=== PATIENT | female | born 1950 | race Caucasian/White ===

== ENCOUNTER 2016-12-07 14:52 | Outpatient (CLI) | payer MEDICARE | END 2016-12-07 14:53 | disposition home or self-care (01) | DX: Z12.31 Encounter for screening mammogram for malignant neoplasm of breast (principal) ==

== ENCOUNTER 2017-07-16 11:51 | Emergency (ER) | payer MEDICARE ==
[2017-07-16 12:23] LABS: BASOPHILS # (AUTO) 0.1 10^3/uL (0.0-0.1); BASOPHILS % (AUTO) 1.3 %; EOSINOPHILS # (AUTO) 0.1 10^3/uL (0.0-0.7); EOSINOPHILS % (AUTO) 1.6 %; HCT - HEMATOCRIT 37.9 % (37.0-47.0); LYMPHOCYTES # (AUTO) 1.1 10^3/uL (1.5-3.5); LYMPHOCYTES % (AUTO) 20.9 %; MEAN CORPUSCULAR HEMOGLOBIN 29.9 pg (27.0-31.0); MEAN CORPUSCULAR HGB CONC 34.3 g/dL (32.0-36.0); MEAN CORPUSCULAR VOLUME 87.2 fL (81.0-99.0); MEAN PLATELET VOLUME 7.3 fL (7.9-10.8); MONOCYTES # (AUTO) 0.4 10^3/uL (0.0-1.0); MONOCYTES % (AUTO) 7.9 %; NEUTROPHILS # (AUTO) 3.7 10^3/uL (1.5-6.6); NEUTROPHILS % (AUTO) 68.3 %; RED BLOOD COUNT 4.34 10^6/uL (4.20-5.40); RED CELL DISTRIBUTION WIDTH 13.5 % (12.0-15.0); UNCORRECTED WHITE BLOOD COUNT 5.4 x10^3/uL; WHITE BLOOD COUNT 5.4 x10^3/uL (4.8-10.8)
--- NOTE | 2017-07-16 12:25 | ED Physician Documentation ---
PD HPI CHEST PAIN - Stated complaint Stated Complaint: RAPID HB - Chief complaint Chief Complaint: Cardiac - History obtained from History obtained from: Patient - History of Present Illness Timing - onset: Last night (about 2 am, awoke from sleep with feeling of fast heart rate, which continued into this morning. She has olga on phone that measures heart rate and it read consistently 150 at intervals through the night. Reading here now was 84 and correlated with our heart monitor, so seems reliable.) Timing - onset during: Sleep Timing - duration: Hours (about 9 hours duration, improved here.) Timing - details: Abrupt onset, Now resolved (resolved just as arriving to the ED. Had gone to bathroom shortly prior to that.) Quality: Pressure Location: Substernal Radiation: No: Jaw, Neck, Back, Abdominal, Left upper extremity, Right upper extremity, Other Worsened by: Exertion Associated symptoms: Shortness of air, Palpitations. No: Diaphoresis, Nausea, Feeling faint / dizzy, Cough Similar symptoms before: No diagnosis (has had feeling of heart racing briefly in the past but only few minutes at a time. No Dx.) Recently seen: Not recently seen Review of Systems Constitutional: denies: Fever, Chills Nose: denies: Rhinorrhea / runny nose, Congestion Throat: denies: Sore throat Cardiac: reports: Palpitations. denies: Pedal edema, Calf pain Respiratory: reports: Dyspnea. denies: Cough, Wheezing GI: denies: Nausea, Vomiting, Diarrhea : denies: Dysuria, Frequency Skin: denies: Rash, Lesions Musculoskeletal: denies: Extremity swelling Neurologic: denies: Focal weakness, Numbness, Near syncope PD PAST MEDICAL HISTORY - Past Medical History Cardiovascular: None Respiratory: None Neuro: None Endocrine/Autoimmune: None - Present Medications Home Medications: Ambulatory Orders Medication Instructions Recorded Confirmed Levothyroxine [Synthroid] 100 mcg PO DAILY 07/16/17 07/16/17 Meloxicam 7.5 mg PO DAILY 07/16/17 07/16/17 Metoprolol Tartrate 25 mg PO DAILY #15 tablet 07/16/17 - Allergies Allergies/Adverse Reactions: Allergies Allergy/AdvReac Type Severity Reaction Status Date / Time No Known Drug Allergies Allergy Verified 07/16/17 12:03 - Family History Family history: reports: Other (atrial fib in several family members. ). denies : Sudden PD ED PE NORMAL - Vitals Vital signs reviewed: Yes - General General: Alert and oriented X 3, No acute distress, Well developed/nourished - HEENT HEENT: Atraumatic, Moist mucous membranes, Pharynx benign - Neck Neck: Supple, no meningeal sign, No adenopathy - Cardiac Cardiac: RRR, No murmur - Respiratory Respiratory: Clear bilaterally - Abdomen Abdomen: Soft, Non tender, Non distended - Female Female : Deferred - Rectal Rectal: Deferred - Back Back: No CVA TTP - Derm Derm: Normal color, Warm and dry - Extremities Extremities: No deformity, No tenderness to palpate, No edema, No calf tenderness / cord - Neuro Neuro: Alert and oriented X 3, No motor deficit, Normal speech - Psych Psych: Normal mood, Normal affect Results - Vitals Vitals: Vital Signs - 24 hr 07/16/17 07/16/17 07/16/17 11:55 13:58 14:02 Temperature 36.7 C Heart Rate 99 89 77 Respiratory 16 19 12 Rate Blood Pressure 148/78 H 123/110 H 110/68 O2 Saturation 98 100 99 07/16/17 15:21 Temperature 36.4 C L Heart Rate 80 Respiratory 18 Rate Blood Pressure 128/74 O2 Saturation 100 Oxygen O2 Source Room air - EKG (time done) 11:58 Rate: Rate (enter#) (96) Rhythm: NSR [place]: Normal Intervals: Normal PA QRS: Normal Ischemia: Normal ST segments. No: ST elevation c/w ischemia, ST depression Compare to prior EKG: Old EKG unavailable - Labs Labs: Laboratory Tests 07/16/17 07/16/17 07/16/17 12:13 12:13 12:13 WBC 5.4 RBC 4.34 Hgb 13.0 Hct 37.9 MCV 87.2 MCH 29.9 MCHC 34.3 RDW 13.5 Plt Count 258 MPV 7.3 L Neut # 3.7 Lymph # 1.1 L [place] # 0.4 Eos # 0.1 Baso # 0.1 Absolute Nucleated RBC 0.00 Nucleated RBC % 0.0 Sodium 138 Potassium 3.7 Chloride 102 Carbon Dioxide 26 Anion Gap 10.0 BUN 17 Creatinine 0.9 Estimated GFR (MDRD) 62 L Glucose 115 H Calcium 9.4 Magnesium Troponin I 0.13 B-Natriuretic Peptide 07/16/17 07/16/17 07/16/17 12:13 12:13 14:44 WBC RBC Hgb Hct MCV MCH MCHC RDW Plt Count MPV Neut # Lymph # [place] # Eos # Baso # Absolute Nucleated RBC Nucleated RBC % Sodium Potassium Chloride Carbon Dioxide Anion Gap BUN Creatinine Estimated GFR (MDRD) Glucose Calcium Magnesium 1.9 Troponin I 0.15 B-Natriuretic Peptide 178 H - Rads (name of study) chest Radiology: Prelim report reviewed, EMP read contemporaneously (no acute process) ECHO Radiology: Prelim report reviewed (normal LV function and good EF 65-70%. Mild MR, otherwise normal valves. ) PD MEDICAL DECISION MAKING - ED course Complexity details: reviewed results (Initial Troponin from triage orders had minimal bump. Likely due to muscle strain fo the SVT. Watched for couple hours and also got ECHO, which was okay. Repeat Troponin without change, so not indicative of acute focal myocardial injury. ), re-evaluated patient (stil NSR in ED and feeling okay.), considered differential, d/w patient Departure - Departure Disposition: 01 Home, Self Care Clinical Impression: Paroxysmal SVT (supraventricular tachycardia) Condition: Stable Record reviewed to determine appropriate education?: Yes Instructions: ED Tachycardia Pat PSVT Follow-Up: Linette Mahmood PA [Primary Care Provider] - Prescriptions: Metoprolol Tartrate 25 mg PO DAILY #15 tablet Comments: Your heart function looks good on echocardiogram (ultrasound of the heart). There is very slight valve dysfunction which is very common. Your heart rhythm is been normal here. There is no signs of heart attack or heart failure. It sounds most likely to have been an SVT episode. However it could have been atrial fibrillation and been fairly regular. Follow-up with your primary care for likely a Holter monitor where he can have your rhythm recorded for a week to see if other episodes happen. Drink lots of fluids and regular activity. If you do notice some episodes more frequently before seeing your primary care, you could start metoprolol low dose daily to try to reduce the frequency. If you have persistent episode again, return to the ER. If you do have another episode that persists more than several minutes, you could try vagal maneuvers like grunting really hard as of having a bowel movement for 30 seconds and then relaxing. [place] in the face will sometimes do it as well. Discharge Date/Time: 07/16/17 15:21
[2017-07-16 12:34] LABS: CALCIUM 9.4 mg/dL (8.5-10.3); CREATININE 0.9 mg/dL (0.4-1.0); POTASSIUM 3.7 mmol/L (3.5-5.0)
[2017-07-16] MEDS ORDERED: ASPIRIN CHEW 81 MG TABLET PO STA (12:51)
[2017-07-16] MEDS ORDERED: ASPIRIN CHEW 81 MG TABLET ONE (13:10)
--- NOTE | 2017-07-16 13:29 | XRAY Preliminary Report ---
Exam: XR CHEST 1 VIEW IMPRESSION: Normal single view chest. [facility] SITE ID: [id number]
--- NOTE | 2017-07-16 14:01 | XRAY Report ---
EXAM: CHEST RADIOGRAPHY EXAM DATE: 07/16/2017 01:12 PM. CLINICAL HISTORY: Rapid heart rate for a few hours. COMPARISON: 09/20/2015. TECHNIQUE: 1 view. FINDINGS: Lungs/Pleura: No focal opacities evident. No pleural effusion. No pneumothorax. Mediastinum: Within exam limitations, the cardiomediastinal contour is normal. Other: None. IMPRESSION: Normal single view chest. [facility] Referring Provider Line: [phone] SITE ID: [id number]
[2017-07-16 15:23] VITALS: BP 128/74
== END 2017-07-16 15:21 | disposition home or self-care (01) ==
LOC: ED 11:51
DX: I47.1 Supraventricular tachycardia (principal)
CPT/HCPCS: 36415; 71010; 80048; 83735; 83880; 84484; 85025; 93005; 93306; 99284; A9270

== ENCOUNTER 2018-05-17 15:43 | Outpatient (CLI) | payer MEDICARE ==
--- NOTE | 2018-05-18 13:38 | Mammography Report ---
Reason: BILAT SCREEN w HIMANSHU Procedure Date: 05/17/2018 Accession Number: [id number] / [id number] Procedure: JIGNA - Screening Mammo w/Himanshu CPT Code: FULL RESULT: EXAM: Screening Mammo w/Himanshu DATE: 05/17/2018 4:18 PM CLINICAL HISTORY: 67 year-old nulliparous female presents for screening mammogram. TECHNIQUE: Bilateral CC and MLO views were obtained. COMPARISON: 12/07/2016, 09/20/2015, 07/21/2012, 07/23/2010. FINDINGS: The breasts demonstrate diffuse fatty replacement bilaterally. An apparent left breast upper quadrant asymmetry seen on the left MLO view resolves with 3-D tomography, tissue overlap and therefore benign. No suspicious masses, clustered microcalcifications, or regions of architectural distortion are identified. IMPRESSION: Benign findings RECOMMENDATION: Routine annual screening unless otherwise clinically indicated. BIRADS CATEGORY 2: Benign findings STANDARD QUALIFYING STATEMENTS: 1. This examination was not reviewed with the aid of Computer-Aided Detection (CAD). 2. A negative or benign imaging report should not delay biopsy if clinically suspicious findings are present. Consider surgical consultation if warrented. More than 5% of cancers are not identified by imaging. 3. Dense breasts may obscure an underlying neoplasm. 4. This examination was reviewed with the aid of 3D breast imaging (tomosynthesis).
== END 2018-05-17 15:44 | disposition home or self-care (01) ==
LOC: DI 15:43
PROVIDERS: ATTEND Internal Medicine
DX: Z12.31 Encounter for screening mammogram for malignant neoplasm of breast (principal)
CPT/HCPCS: 77063; 77067

== ENCOUNTER 2019-06-17 16:18 | Outpatient (CLI) | payer MEDICARE ==
--- NOTE | 2019-06-23 10:12 | Ultrasound Report ---
Reason: RT CALF PAIN Procedure Date: 06/17/2019 Accession Number: [id number] / [id number] Procedure: US - Duplex Ext Veins Right CPT Code: Final Report FULL RESULT: EXAM: RIGHT LOWER EXTREMITY VENOUS ULTRASOUND EXAM DATE: 06/17/2019 05:26 PM. CLINICAL HISTORY: RT CALF PAIN. COMPARISON: None. TECHNIQUE: Real-time sonographic vascular imaging was performed by the muffle operator through the lower extremity utilizing both color-flow and Doppler spectral analysis. Multiple sales representative public utilities static images were saved for review. FINDINGS: Common Femoral Vein (CFV): Normal. CFV-GSV Junction: Normal. Profunda Femoral Vein (PFV): Normal. Femoral Vein (FV) Prox: Normal. Femoral Vein (FV) Mid: Normal. Femoral Vein (FV) Dist: Normal. Popliteal Vein: Normal. Posterior Tibial Veins: Normal. Peroneal Veins: Normal. Other: Visualization of calf veins is limited. Additionally, incidental note is made of a 6.8 x 1.4 cm anechoic appearing linear fluid collection within soft tissues anterior to the knee. IMPRESSION: No evidence for deep venous thrombosis. Soft tissue fluid as described. [facility]
== END 2019-06-17 16:19 | disposition home or self-care (01) ==
LOC: DI 16:18
PROVIDERS: ATTEND Nurse Practitioner Family
DX: M79.661 Pain in right lower leg (principal)

== ENCOUNTER 2019-08-21 11:17 | Outpatient (CLI) | payer MEDICARE ==
--- NOTE | 2019-08-21 15:05 | XRAY Report ---
Reason: ACUTE BRONCHITIS, UNSPECIFIED Procedure Date: 08/21/2019 Accession Number: [id number] / [id number] Procedure: XRS - Chest 2 View X-Ray CPT Code: 67420 Final Report FULL RESULT: EXAM: CHEST RADIOGRAPHY EXAM DATE: 08/21/2019 11:29 AM. CLINICAL HISTORY: ACUTE BRONCHITIS, UNSPECIFIED. Cough. COMPARISON: CHEST 2 VIEW PA/LAT 09/20/2015 2:53 PM. TECHNIQUE: 2 views. FINDINGS: Lungs/Pleura: Linear atelectasis or scarring in the left base. Mild interstitial prominence with some peribronchial cuffing. No definite acute infiltrate, consolidation, effusion, or pneumothorax. Mediastinum: Heart and mediastinal contours are unremarkable. Other: Degenerative changes. IMPRESSION: Interstitial prominence compatible with clinical impression of bronchitis. [facility]
== END 2019-08-21 11:18 | disposition home or self-care (01) ==
LOC: DI.S 11:17
PROVIDERS: ATTEND Physician Assistant
DX: J20.9 Acute bronchitis, unspecified (principal)
CPT/HCPCS: 71046

== ENCOUNTER 2021-03-19 11:33 | Outpatient (CLI) | payer MEDICARE ==
[2021-03-19 15:25] LABS: ALBUMIN 3.8 g/dL (3.2-5.5); ALBUMIN/GLOBULIN RATIO 1.1 (1.0-2.2); ALKALINE PHOSPHATASE 78 IU/L (42-121); ALT ALANINE AMINOTRANSFERASE 12 IU/L (10-60); AMYLASE 53 U/L (28-100); AST ASPARTATE AMINOTRANSFERASE 13 IU/L (10-42); BILIRUBIN,TOTAL 0.4 mg/dL (0.2-1.0); BUN - BLOOD UREA NITROGEN 15 mg/dL (6-20); CALCIUM 9.1 mg/dL (8.5-10.3); CARBON DIOXIDE - CO2 26 mmol/L (21-32); CHLORIDE 99 mmol/L (101-111); CHOL/HDL RATIO 4.3 (<4.4); CHOLESTEROL 137 mg/dL; CREATININE 0.9 mg/dL (0.4-1.0); GFR - MDRD 62 (>89); GLUCOSE 112 mg/dL (70-100); HDL CHOLESTEROL 32 mg/dL; LDL CHOLESTEROL,CALCULATED 86 mg/dL; LDL/HDL RATIO 2.7 (<4.4); LIPASE 32 U/L (22-51); POTASSIUM 4.1 mmol/L (3.5-5.0); SODIUM 136 mmol/L (135-145); TOTAL PROTEIN 7.3 g/dL (6.7-8.2); TRIGLYCERIDES 97 mg/dL; VLDL CHOLESTEROL 19 mg/dL
[2021-03-19 15:33] LABS: THYROID STIMULATING HORMONE 2.85 uIU/mL (0.34-5.60)
[2021-03-19 19:58] LABS: ESTIMATED AVERAGE GLUCOSE 111 mg/dL (70-100); HEMOGLOBIN A1c% 5.5 % (4.27-6.07)
== END 2021-03-19 11:34 | disposition home or self-care (01) ==
LOC: LAB.S 11:33
PROVIDERS: ATTEND Nurse Practitioner Family
DX: K21.9 Gastro-esophageal reflux disease without esophagitis (principal); E03.9 Hypothyroidism, unspecified; R73.01 Impaired fasting glucose; E78.5 Hyperlipidemia, unspecified
CPT/HCPCS: 36415; 80053; 80061; 82150; 83036; 83690; 83721; 84443

== ENCOUNTER 2021-10-01 15:21 | Outpatient (CLI) | payer MEDICARE ==
--- NOTE | 2021-10-01 17:00 | XRAY Report ---
PROCEDURE: Foot 3 View LT INDICATIONS: CHRONIC L FOOT PAIN TECHNIQUE: 3 views of the foot were acquired. COMPARISON: None FINDINGS: Bones: No fractures or dislocations. Osteoarthritic changes throughout left foot and ankle joints ar e seen. Well-defined plantar calcaneal enthesophyte is noted. No suspicious bony lesions. Soft tissues: No tibiotalar joint effusion. Achilles tendon appears normal. 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 No acute fracture or dislocation. Well-defined calcaneal enthesophyte. Reviewed by: Silvestre Avila MD on 10/01/2021 4:59 PM PST Approved by: Silvestre Avila MD on 10/01/2021 4:59 PM PST Station ID: [id number]
== END 2021-10-01 15:22 | disposition home or self-care (01) ==
LOC: DI 15:21
PROVIDERS: ATTEND Podiatrist
DX: M19.072 Primary osteoarthritis, left ankle and foot (principal)

== ENCOUNTER 2022-09-23 11:01 | Outpatient (CLI) | payer MEDICARE ==
[2022-09-23 16:06] LABS: THYROID STIMULATING HORMONE 3.75 uIU/mL (0.34-5.60)
== END 2022-09-23 11:02 | disposition home or self-care (01) ==
LOC: LAB.S 11:01
PROVIDERS: ATTEND Internal Medicine
DX: E03.9 Hypothyroidism, unspecified (principal)
CPT/HCPCS: 36415; 84443

== ENCOUNTER 2022-10-02 12:31 | Emergency (ER) | payer MEDICARE ==
[2022-10-02 12:38] VITALS: BP 180/110
--- OUTSIDE RECORDS SUMMARY | 2022-10-02 12:52 | EXTERNAL MEDICAL SUMMARY RPT | Continuity of Care Document ---
:1950 Author Organization [facility] Address [address] [place] [address] Phone Care Team Providers Name Role Phone Unavailable Unavailable Unavailable Ruben Chery, Keshia Unavailable Unavailable Maurizio Rn, Bsn, Alix Unavailable Unavailable Allergies No information. Encounters No information. Functional Status No information. Immunizations No information. Medications date description facility 2022-09-02 00:00 famotidine All 2022-09-02 00:00 famotidine All 2022-09-03 00:00 famotidine All 2022-10-01 00:00 famotidine All 2022-09-03 00:00 estradiol All 2022-10-01 00:00 estradiol All 2022-09-03 00:00 levothyroxine All 2022-10-01 00:00 levothyroxine All 2022-09-02 00:00 phentermine All 2022-09-02 00:00 phentermine All 2022-09-03 00:00 levothyroxine All 2022-10-01 00:00 levothyroxine All 2022-09-02 00:00 phentermine All 2022-09-02 00:00 phentermine All 2022-09-03 00:00 estradiol All 2022-10-01 00:00 estradiol All 2022-09-02 00:00 famotidine All 2022-09-02 00:00 famotidine All 2022-09-03 00:00 famotidine All 2022-10-01 00:00 famotidine All 2022-09-03 00:00 levothyroxine All 2022-10-01 00:00 levothyroxine All 2022-09-03 00:00 levothyroxine All 2022-10-01 00:00 levothyroxine All 2022-09-03 00:00 estradiol All 2022-10-01 00:00 estradiol All 2022-09-02 00:00 famotidine All 2022-09-02 00:00 famotidine All 2022-09-03 00:00 famotidine All 2022-10-01 00:00 famotidine All 2022-09-03 00:00 meloxicam All 2022-10-01 00:00 meloxicam All 2022-09-03 00:00 levothyroxine All 2022-10-01 00:00 levothyroxine All 2022-09-03 00:00 atorvastatin All 2022-10-01 00:00 atorvastatin All 2022-09-03 00:00 atorvastatin All 2022-10-01 00:00 atorvastatin All 2022-09-02 00:00 famotidine All 2022-09-02 00:00 famotidine All 2022-09-03 00:00 famotidine All 2022-10-01 00:00 famotidine All 2022-09-03 00:00 meloxicam All 2022-10-01 00:00 meloxicam All 2022-09-03 00:00 estradiol All 2022-10-01 00:00 estradiol All 2022-09-03 00:00 levothyroxine All 2022-10-01 00:00 levothyroxine All 2022-09-02 00:00 phentermine All 2022-09-02 00:00 phentermine All 2022-09-03 00:00 atorvastatin All 2022-10-01 00:00 atorvastatin All 2022-09-03 00:00 atorvastatin All 2022-10-01 00:00 atorvastatin All 2022-09-03 00:00 meloxicam All 2022-10-01 00:00 meloxicam All 2022-09-03 00:00 meloxicam All 2022-10-01 00:00 meloxicam All 2022-09-03 00:00 levothyroxine All 2022-10-01 00:00 levothyroxine All 2022-09-03 00:00 levothyroxine All 2022-10-01 00:00 levothyroxine All 2022-09-02 00:00 phentermine All 2022-09-02 00:00 phentermine All Problems date description facility 2022-09-03 00:00 Unspecified hypothyroidism All 2022-09-03 00:00 Hypothyroidism All 2022-09-03 00:00 Obesity All 2022-09-03 00:00 Hypothyroidism, unspecified All 2022-09-03 00:00 Obesity, unspecified All 2022-10-01 00:00 Unspecified hypothyroidism All 2022-10-01 00:00 Hypothyroidism All 2022-10-01 00:00 Obesity All 2022-10-01 00:00 Hypothyroidism, unspecified All 2022-10-01 00:00 Obesity, unspecified All Procedures No information. Results/Labs test date author facility value unit interpret ation Result panel 1 (unknown) (no date) (unknown) All (no value) (units unknown ) (unknown) Social History date description facility 2022-09-03 00:00 Unknown if ever smoked All 2022-10-01 00:00 Unknown if ever smoked All Vital Signs No information.
--- NOTE | 2022-10-02 12:59 | ED Physician Documentation ---
History of Present Illness - Stated complaint Stated Complaint: SOA, HIGH BP - Chief complaint Chief Complaint: General - History obtained from History obtained from: Patient - Additonal information Additional information: 72-year-old woman with history of hypercholesterolemia. She had told the nurse she was on antihypertensives, but after review of her medications she is only on levothyroxine and a atorvastatin. Her blood pressure was doing fine at her last physical in May but last week she went to [facility] for preop appointment for an ankle reconstruction and it was approximately 190/90. Since then she has gotten a home blood pressure meter and has continued to see similar readings. She feels like she cannot get a deep breath but it is not painful and there is no chest pain per se. She denies pedal edema or calf pain. Review of Systems Constitutional: denies: Fever, Chills GI: denies: Abdominal Pain : denies: Dysuria, Frequency, Hesitancy PD PAST MEDICAL HISTORY - Past Medical History Cardiovascular: None Respiratory: None Endocrine/Autoimmune: None - Past Surgical History Past Surgical History: Yes Ortho: Knee replacement HEENT: Cataracts - Present Medications Home Medications: Ambulatory Orders Medication Instructions Recorded Confirmed Levothyroxine [Synthroid] 100 mcg PO DAILY 07/16/17 07/16/17 Meloxicam 7.5 mg PO DAILY 07/16/17 07/16/17 Metoprolol Tartrate 25 mg PO DAILY #15 tablet 07/16/17 Losartan Potassium 25 mg PO DAILY #90 tablet 10/02/22 - Allergies Allergies/Adverse Reactions: Allergies Allergy/AdvReac Type Severity Reaction Status Date / Time No Known Drug Allergies Allergy Verified 10/02/22 12:35 - Social History Does the pt smoke?: No Smoking Status: Former smoker Does the pt drink ETOH?: Yes Does the pt have substance abuse?: No PD ED PE NORMAL - Vitals Vital signs reviewed: Yes - General General: Alert and oriented X 3, No acute distress - Neck Neck: Supple, no meningeal sign, No bony TTP - Cardiac Cardiac: RRR, No murmur - Respiratory Respiratory: No respiratory distress, Clear bilaterally - Abdomen Abdomen: Non tender - Neuro Neuro: Alert and oriented X 3, Normal speech Results - Vitals Vitals: Vital Signs - 24 hr 10/02/22 12:35 Temperature 36.5 C Heart Rate 82 Respiratory 20 Rate Blood Pressure 180/110 H O2 Saturation 99 Oxygen O2 Source Room air - EKG (time done) 1304 Rate: Rate (enter#) (74) Rhythm: NSR [place]: Normal Intervals: Normal ND QRS: Normal Ischemia: Non specific changes. No: ST elevation c/w ischemia, ST depression - Labs Labs: Laboratory Tests 10/02/22 10/02/22 13:03 13:03 WBC 4.7 L RBC 4.04 L Hgb 12.0 Hct 37.5 MCV 92.8 MCH 29.7 MCHC 32.0 RDW 13.2 Plt Count 248 MPV 9.0 Neut # (Auto) 2.8 Lymph # (Auto) 1.3 L [place] # (Auto) 0.5 Eos # (Auto) 0.1 Baso # (Auto) 0.1 Absolute Nucleated RBC 0.00 Nucleated RBC % 0.0 Sodium 134 L Potassium 3.9 Chloride 100 L Carbon Dioxide 28 Anion Gap 6.0 BUN 19 Creatinine 1.0 Estimated GFR (MDRD) 54 L Glucose 93 Calcium 8.8 Total Bilirubin 0.7 AST 13 ALT 12 Alkaline Phosphatase 59 Total Protein 7.0 Albumin 4.0 Globulin 3.0 Albumin/Globulin Ratio 1.3 Lipase 37 - Rads (name of study) 2V CXR - NAD Radiology: Final report received, EMP read indepedently PD Medical Decision Making - ED course ED course: 72-year-old woman presents with hypertension noted at a clinic visit a week ago and consistent at home. Her primary care physician is on leave due to medical issue. No worrisome findings on work-up here. CBC reviewed and normal. CMP reviewed and normal. EKG and chest x-ray unremarkable. We will start losartan pending primary care follow-up. Departure - Departure Disposition: Home, Self Care Clinical Impression: Hypertension Qualifiers: Hypertension type: primary hypertension Qualified Code(s): I10 - Essential (primary) hypertension Condition: Good Record reviewed to determine appropriate education?: Yes Instructions: Receptor Blockers Angiotensin, Choices Low Salt, ED Hypertension New Begin Tx Prescriptions: Losartan Potassium 25 mg PO DAILY #90 tablet Comments: You were seen today for elevated blood pressure, there is no evidence of heart failure or kidney disease. I am starting you on blood pressure medication known as losartan. If after a week your top number is still over 160, you can double it. Ideally to follow-up with your doctor in a week for recheck. In addition to medication, a low-salt diet and exercise is also recommended limited of course by your ankle issue. I sent the prescription electronically to the [facility] in [place]. Discharge Date/Time: 10/02/22 13:40
[2022-10-02 13:09] LABS: BASOPHILS # (AUTO) 0.1 10^3/uL (0.0-0.1); BASOPHILS % (AUTO) 1.5 %; EOSINOPHILS # (AUTO) 0.1 10^3/uL (0.0-0.7); EOSINOPHILS % (AUTO) 1.9 %; HCT - HEMATOCRIT 37.5 % (37.0-47.0); LYMPHOCYTES # (AUTO) 1.3 10^3/uL (1.5-3.5); LYMPHOCYTES % (AUTO) 27.8 %; MEAN CORPUSCULAR HEMOGLOBIN 29.7 pg (27.0-31.0); MEAN CORPUSCULAR VOLUME 92.8 fL (81.0-99.0); MONOCYTES # (AUTO) 0.5 10^3/uL (0.0-1.0); MONOCYTES % (AUTO) 9.7 %; NEUTROPHILS # (AUTO) 2.8 10^3/uL (1.5-6.6); NEUTROPHILS % (AUTO) 58.7 %; PLT - PLATELET COUNT 248 10^3/uL (130-450); RED BLOOD COUNT 4.04 10^6/uL (4.20-5.40); RED CELL DISTRIBUTION WIDTH 13.2 % (12.0-15.0); WHITE BLOOD COUNT 4.7 x10^3/uL (4.8-10.8)
[2022-10-02 13:22] LABS: ALBUMIN/GLOBULIN RATIO 1.3 (1.0-2.2); BILIRUBIN,TOTAL 0.7 mg/dL (0.2-1.0); CALCIUM 8.8 mg/dL (8.5-10.3); POTASSIUM 3.9 mmol/L (3.5-5.0)
--- NOTE | 2022-10-02 13:40 | XRAY Report ---
PROCEDURE: Chest 2 View X-Ray INDICATIONS: dyspnea TECHNIQUE: 2 views of the chest were acquired. COMPARISON: 08/21/2019. FINDINGS: Surgical changes and devices: None. Lungs and pleura: No pleural effusions or pneumothorax. Lungs are clear. Mediastinum: Mediastinal contours are normal. Heart size is normal. Bones and chest wall: No suspicious bony abnormalities. Soft tissues appear unremarkable. IMPRESSION: No evidence acute pulmonary process. Reviewed by: Rafa Obrien MD on 10/02/2022 1:39 PM PST Approved by: Rafa Obrien MD on 10/02/2022 1:39 PM PST Station ID: [id number]
== END 2022-10-02 13:40 | disposition home or self-care (01) ==
LOC: ED 12:31
DX: I10 Essential (primary) hypertension (principal); Z87.891 Personal history of nicotine dependence
CPT/HCPCS: 36415; 80053; 83690; 85025; 93005; 99284

== ENCOUNTER 2022-12-09 08:00 | Outpatient (CLI) | payer MEDICARE | END 2022-12-09 23:59 | disposition home or self-care (01) | LOC: LAB 08:00 | PROVIDERS: ATTEND Internal Medicine | DX: Z01.812 Encounter for preprocedural laboratory examination (principal) | CPT/HCPCS: 87640 ==

== ENCOUNTER 2023-08-03 07:00 | Outpatient (CLI) | payer MEDICARE ==
--- NOTE | 2023-08-03 16:38 | XRAY Report ---
PROCEDURE: Chest 2 View X-Ray INDICATIONS: COUGH TECHNIQUE: 2 views of the chest were acquired. COMPARISON: CXR 10/02/2022. FINDINGS: Surgical changes and devices: None. Lungs and pleura: No pleural effusions or pneumothorax. Lungs are clear. Mediastinum: Mediastinal contours appear normal. Heart size is normal. Bones and chest wall: No suspicious bony lesions. Overlying soft tissues appear unremarkable. IMPRESSION: No acute cardiopulmonary process. Reviewed by: Matthew Arreola MD on 08/03/2023 4:37 PM [facility] Approved by: Matthew Arreola MD on 08/03/2023 4:37 PM [facility] Station ID: [id number]
== END 2023-08-03 23:59 | disposition home or self-care (01) ==
LOC: DI.S 07:00
PROVIDERS: ATTEND Physician Assistant Medical
DX: R05.9 Cough, unspecified (principal); R09.89 Other specified symptoms and signs involving the circulatory and respiratory systems

== ENCOUNTER 2023-10-07 07:00 | Outpatient (CLI) | payer MEDICARE ==
--- NOTE | 2023-10-07 15:33 | XRAY Report ---
PROCEDURE: Chest 2V INDICATIONS: SHORTNESS OF BREATH TECHNIQUE: 2 views of the chest were acquired. COMPARISON: None. FINDINGS: Surgical changes and devices: None. Lungs and pleura: No pleural effusions or pneumothorax. Lungs are clear. Mediastinum: Mediastinal contours appear normal. Heart size is normal. Bones and chest wall: No suspicious bony lesions. Overlying soft tissues appear unremarkable. IMPRESSION: No acute cardiopulmonary process. Reviewed by: Chaim Lin MD on 10/07/2023 3:[address] [facility] Approved by: Chaim Lin MD on 10/07/2023 3:[address] [facility] Station ID: [id number]
[2023-10-07 19:41] LABS: BASOPHILS # (AUTO) 0.1 10^3/uL (0.0-0.1); BASOPHILS % (AUTO) 1.5 %; EOSINOPHILS # (AUTO) 0.1 10^3/uL (0.0-0.7); EOSINOPHILS % (AUTO) 3.3 %; HCT - HEMATOCRIT 36.1 % (37.0-47.0); HGB - HEMOGLOBIN 11.4 g/dL (12.0-16.0); LYMPHOCYTES # (AUTO) 1.2 10^3/uL (1.5-3.5); LYMPHOCYTES % (AUTO) 30.2 %; MEAN CORPUSCULAR HEMOGLOBIN 30.2 pg (27.0-31.0); MEAN CORPUSCULAR HGB CONC 31.6 g/dL (32.0-36.0); MEAN CORPUSCULAR VOLUME 95.8 fL (81.0-99.0); MEAN PLATELET VOLUME 9.7 fL (7.9-10.8); MONOCYTES # (AUTO) 0.4 10^3/uL (0.0-1.0); MONOCYTES % (AUTO) 10.3 %; NEUTROPHILS # (AUTO) 2.2 10^3/uL (1.5-6.6); NEUTROPHILS % (AUTO) 54.2 %; PLT - PLATELET COUNT 239 10^3/uL (130-450); RED BLOOD COUNT 3.77 10^6/uL (4.20-5.40); RED CELL DISTRIBUTION WIDTH 13.3 % (12.0-15.0)
[2023-10-07 20:03] LABS: BUN - BLOOD UREA NITROGEN 22 mg/dL (6-20); CALCIUM 9.3 mg/dL (8.5-10.3); CARBON DIOXIDE - CO2 28 mmol/L (21-32); CHLORIDE 107 mmol/L (101-111); CRP - C-REACTIVE PROTEIN < 0.5 mg/dL (<0.5); GFR - MDRD 54 (>89); GLUCOSE 98 mg/dL (74-104); POTASSIUM 4.3 mmol/L (3.5-4.5); SODIUM 138 mmol/L (135-145)
== END 2023-10-07 23:59 | disposition home or self-care (01) ==
LOC: DI.S 07:00
PROVIDERS: ATTEND Physician Assistant Medical
DX: R06.09 Other forms of dyspnea (principal); R06.01 Orthopnea
CPT/HCPCS: 36415; 80048; 83880; 84443; 85025; 85651; 86140